=== PATIENT | male | born 1955 ===

== ENCOUNTER 2018-03-05 20:59 | Emergency (ER) | payer SELFPAY ==
--- NOTE | 2018-03-05 21:05 | EDPHY ---
H & P Time Seen by Provider: 03/05/18 21:04 HPI/ROS: CHIEF COMPLAINT: Altered HISTORY OF PRESENT ILLNESS: EMS brought the patient into the requested police. He was found outside altered and possibly intoxicated. Primarily Yoruba- speaking, interview in the emergency department the patient is slurring his words and unable to really give any coherent history. There is no evidence of trauma in the field. REVIEW OF SYSTEMS: Eye: no change in vision ENT: no sore throat Cardiac: no chest pain or syncope Pulmonary: no cough or SOB Abdomen: no vomiting, diarrhea, abdominal pain Musculoskeletal: no back pain or neck pain Skin: no rash Neuro: no headache or injury. Constitutional: no fever : no urinary symptoms A comprehensive 10 point review of systems is otherwise negative aside from elements mentioned in the history of present illness. 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 Slurring his speech. Eyes: No scleral icterus. Pupils equal and reactive. ENT, Mouth: Normal mucous membranes. Normal mucous membranes. Respiratory: Normal respiratory effort, breath sounds equal, lungs are clear to auscultation. Cardiovascular: Regular rate and rhythm. Gastrointestinal: Abdomen is soft and non tender. Neurological: Patient is alert but slurring his speech, spontaneous movement of all 4 extremities, will follow commands. Skin: Warm and dry, no rashes. Musculoskeletal: No peripheral edema. Psychiatric: Not agitated. Emergency Department course/MDM: CBC Chem 7 ethanol. Serial exams. Does not have external evidence of trauma. Signed out to [facility], ethanol elevated, serial exams until not intoxicated. ( Alexandro Sierra) Constitutional: Initial Vital Signs Temperature (C) 36.8 C 03/05/18 21:07 Heart Rate 65 03/05/18 21:07 Respiratory Rate 16 03/05/18 21:07 Blood Pressure 120/73 03/05/18 21:07 O2 Sat (%) 90 L 03/05/18 21:07 O2 Delivery Mode Nasal Cannula O2 (L/minute) 2 Allergies/Adverse Reactions: No Known Allergies Allergy (Unverified 02/17/13 14:39) Home Medications: Medication Instructions Recorded NK [No Known Home Meds] 03/05/18 Medical Decision Making ED Course/Re-evaluation: 0209: Patient ambulated well throughout the emergency room with a stable gait. Clinically sober. Safe for discharge to the [facility]. (Alvarez Rolle) Differential Diagnosis: Differential diagnosis considered for altered mental status including but not limited to hypoglycemia, infectious process, electrolyte abnormality, head injury and intoxicants. (Alexandro Sierra) - Data Points Laboratory Results: Laboratory Results 03/05/18 21:30 03/05/18 21:30 03/05/18 03/05/18 21:30 21:30 WBC 9.92 10^3/uL H 10^3/uL (3.80-9.50) RBC 4.80 10^6/uL 10^6/uL (4.40-6.38) Hgb 15.2 g/dL g/dL (13.7-17.5) Hct 43.7 % % (40.0-51.0) MCV 91.0 fL fL (81.5-99.8) MCH 31.7 pg pg (27.9-34.1) MCHC 34.8 g/dL g/dL (32.4-36.7) RDW 13.6 % % (11.5-15.2) Plt Count 156 10^3/uL 10^3/uL (150-400) MPV 9.4 fL fL (8.7-11.7) Neut % (Auto) 28.5 % L % (39.3-74.2) Lymph % (Auto) 62.3 % H % (15.0-45.0) [place] % (Auto) 4.5 % % (4.5-13.0) Eos % (Auto) 3.7 % % (0.6-7.6) Baso % (Auto) 0.8 % % (0.3-1.7) Nucleat RBC Rel Count 0.0 % % (0.0-0.2) Absolute Neuts (auto) 2.83 10^3/uL 10^3/uL (1.70-6.50) Absolute Lymphs (auto) 6.18 10^3/uL H 10^3/uL (1.00-3.00) Absolute Monos (auto) 0.45 10^3/uL 10^3/uL (0.30-0.80) Absolute Eos (auto) 0.37 10^3/uL 10^3/uL (0.03-0.40) Absolute Basos (auto) 0.08 10^3/uL 10^3/uL (0.02-0.10) Absolute Nucleated RBC 0.00 10^3/uL 10^3/uL (0-0.01) Immature Gran % 0.2 % % (0.0-1.1) Immature Gran # 0.02 10^3/uL 10^3/uL (0.00-0.10) RBC/WBC/PLT Morphology TNP Platelet Estimate TNP Sodium 143 mEq/L mEq/L (135-145) Potassium 4.2 mEq/L mEq/L (3.3-5.0) Chloride 106 mEq/L mEq/L (97-110) Carbon Dioxide 23 mEq/l mEq/l (22-31) Anion Gap 14 mEq/L mEq/L (6-14) BUN 11 mg/dL mg/dL (7-23) Creatinine 0.6 mg/dL L mg/dL (0.7-1.3) Estimated GFR > 60 Glucose 107 mg/dL H mg/dL (70-100) Calcium 9.3 mg/dL mg/dL (8.5-10.4) Ethyl Alcohol 447 mg/dL H* mg/dL (0-10) Medications Given: Discontinued Medications Chlordiazepoxide (Librium 25 Mg Prepack#6) 1 btl TAKEHOME EDNOW ONE Stop: 03/06/18 01:59 Last Admin: 03/06/18 02:00 Dose: 1 btl Departure - Departure Disposition: Home, Routine, Self-Care Clinical Impression: Alcoholic intoxication Qualifiers: Complication of substance-induced condition: uncomplicated Qualified Code(s): F10.920 - Alcohol use, unspecified with intoxication, uncomplicated Condition: Good Instructions: Chlordiazepoxide/Clidinium (By mouth), Alcohol Intoxication (ED) Referrals: [facility],. [Clinic] - As per Instructions
[2018-03-05 21:40] LABS: PLATELET COUNT 156 10^3/uL (150-400)
[2018-03-06] MEDS ORDERED: CHLORDIAZEPOXIDE 25MG PREPK#6 BTL TAKEHOME ONE (01:58)
[2018-03-06 04:27] VITALS: BP 131/74
== END 2018-03-06 04:27 | disposition home or self-care (01) ==
LOC: EDUNIT#
DX: F10.920 Alcohol use, unspecified with intoxication, uncomplicated (principal)
CPT/HCPCS: G0480